=== PATIENT | male | born 1990 | race Caucasian/White ===

== ENCOUNTER → 2017-05-30 | Outpatient (CLI) | payer BC, OTHER ==
[~2017-05-30] MED LIST: ALBU8.5H8 INH; TRAM50TA2 PO
[2017-05-30 09:00] LABS: HEMATOCRIT 47.6 % (39.2-51.8); HEMOGLOBIN 15.7 g/dL (13.7-18.0); WHITE BLOOD COUNT 6.1 x10^3/uL (3.4-10)
[2017-05-30 09:14] LABS: ASPARTATE AMINO TRANSFERASE 23 U/L (15-37); BLOOD UREA NITROGEN 13 mg/dL (7-18)
== END | disposition home or self-care (01) ==
LOC: STAR 08:00
PROVIDERS: ATTEND Orthopaedic Surgery Orthopaedic Surgery of the Spine
DX: Z01.818 Encounter for other preprocedural examination (principal); M51.26 Other intervertebral disc displacement, lumbar region
CPT/HCPCS: 36415; 71020; 80053; 81003; 85025; 85610; 85730; 93005

== ENCOUNTER 2017-06-05 05:27 | Day surgery (SDC) | payer BC, OTHER ==
[~2017-06-05] VITALS: Ht 182.9 cm; Wt 85.7 kg
[2017-06-05] MEDS ORDERED: LACTATED RINGERS 1,000 ML IV SCH (06:19)
[2017-06-05 06:45] VITALS: BP 143/91
[2017-06-05] MEDS ORDERED: MIDAZOLAM 1 MG/ML, 2ML ONE (06:53)
[2017-06-05] MEDS ORDERED: FENTANYL PF 100 MCG/2ML ONE ×4 (06:53→10:11)
[2017-06-05] MEDS ORDERED: PROPOFOL 10 MG/ML, 20ML ONE (06:55)
[2017-06-05] MEDS ORDERED: ROCURONIUM 10 MG/ML,10ML ONE (06:56)
[2017-06-05] MEDS ORDERED: NEOSTIGMINE 1 MG/ML, 10ML ONE ×2 (06:57→07:41)
[2017-06-05] MEDS ORDERED: SODIUM CHLORIDE 0.9% PF 10ML ONE (06:58)
[2017-06-05] MEDS ORDERED: CEFAZOLIN 1,000 MG ONE ×3 (06:58)
[2017-06-05] MEDS ORDERED: LIDOCAINE/PF 0.5% ,50ML ONE (07:10)
[2017-06-05] MEDS ORDERED: THROMBIN 5,000 UNIT VIAL TP ONE (07:10)
[2017-06-05] MEDS ORDERED: BUPIVACAINE/PF 0.25% ONE (07:10)
[2017-06-05] MEDS ORDERED: VANCOMYCIN 1,000 MG ONE (07:11)
[2017-06-05] MEDS ORDERED: EPINEPHRINE 1 MG/ML, 1ML ONE (07:11)
[2017-06-05] MEDS ORDERED: HYDROmorphone 1 MG/ML, 1ML IV PRN (07:30)
[2017-06-05] MEDS ORDERED: ACETAMINOPHEN 325 MG TABLET PO PRN (07:30)
[2017-06-05] MEDS ORDERED: PROMETHAZINE 25 MG/ML, 1ML IV PRN (07:30)
[2017-06-05] MEDS ORDERED: LABETALOL 5MG/ML, 20ML IV PRN (07:30)
[2017-06-05] MEDS ORDERED: ONDANSETRON 2MG/ML, 2ML IVPush PRN (07:30)
[2017-06-05] MEDS ORDERED: hydrALAzine 20 MG/ML, 1ML IV PRN (07:30)
[2017-06-05] MEDS ORDERED: OXYcodone 5 MG/5 ML ORAL.SOL UDC PO PRN (07:30)
[2017-06-05] MEDS ORDERED: FENTANYL PF 100 MCG/2ML IV PRN (07:30)
[2017-06-05] MEDS ORDERED: GLYCOPYRROLATE 0.2MG/1ML, 5ML ONE (07:41)
[2017-06-05] MEDS ORDERED: MEPERIDINE/PF 50 MG/ML ONE (09:50)
[2017-06-05] MEDS: MEPERIDINE/PF 25MG/0.5ML IVPush PRN ×2 (09:51→10:08)
[2017-06-05] MEDS ORDERED: ACETAMINOPHEN 325 MG TABLET ONE (10:11)
[2017-06-05] MEDS ORDERED: HYDROmorphone 2 MG/ML, 1ML ONE (10:11)
[2017-06-05] MEDS ORDERED: OXYcodone 5 MG/5 ML ORAL.SOL UDC ONE (10:12)
[2017-06-05] MEDS ORDERED: DIAZEPAM 5 MG/ML, 10ML VIAL IV PRN (10:30)
[2017-06-05] MEDS ORDERED: DIAZEPAM 5 MG/ML, 2ML IV PRN (10:30)
[2017-06-05] MEDS ORDERED: HYDROcodone/APAP 10/325 MG TABLET ONE (12:28)
[2017-06-05] MEDS ORDERED: morphine SULFATE 10 MG/ML, 1ML ONE (12:29)
[2017-06-05] MEDS ORDERED: HYDROcodone/APAP 10/325 MG TABLET PO PRN (12:30)
[2017-06-05] MEDS ORDERED: morphine SULFATE 10 MG/ML, 1ML IVPush PRN (12:30)
== END 2017-06-05 13:35 ==
LOC: OUT 05:27
PROVIDERS: ATTEND Orthopaedic Surgery Orthopaedic Surgery of the Spine
DX: M51.26 Other intervertebral disc displacement, lumbar region (principal); Z88.0 Allergy status to penicillin
CPT/HCPCS: 63042; 72100; J0171; J0690; J2001; J2175; J2250; J2270; J2704; J2710; J3010; J3360; J3370; J3490; J7120